=== PATIENT | female | born 1960 | race Caucasian/White ===

== ENCOUNTER 2020-10-25 18:20 | Inpatient (IN) | payer OTHER, MEDICAID, SELFPAY ==
[2020-10-25] VITALS (14 sets, daily range): BP systolic 75–200; BP diastolic 42–97; PULSE 67–125; RESP 14–20; TEMP 36.2–36.6; O2SAT 97–100; BMI 31.1
[2020-10-25] MEDS: propofoL 1,000 MG/100 ML VIAL 23.49 MG IV (20:05)
[2020-10-25] MEDS: DEXMEDETOMIDINE HCL 200 MCG in SODIUM CHLORIDE 0.9% 48 ML IV (20:20)
--- NOTE | 2020-10-25 20:22 | DI.RAD.S_ITS ---
PROCEDURE: XR CHEST 1V INDICATIONS: verify OG placement TECHNIQUE: One view of the chest was acquired. COMPARISON: [facility], , XR CHEST 1 VIEW, 10/25/2020, 15:06. FINDINGS: Surgical changes and devices: There is an endotracheal tube with the tip 3.2 cm above ginette. A nasogastric tube is noted in the stomach. Lungs and pleura: Left lower lobe infiltrate consistent with pneumonia. No pleural effusions or pneumothorax. Mediastinum: Mediastinal contours appear normal. Heart size is normal. Bones and chest wall: No suspicious bony lesions. Overlying soft tissues appear unremarkable. IMPRESSION: 1. Endotracheal tube and nasogastric tube are in expected position. 2. Left basilar infiltrate consistent with pneumonia. Dictated by: Rayshawn Griffin M.D. on 10/25/2020 at 21:09 Approved by: Rayshawn Griffin M.D. on 10/25/2020 at 21:10
--- NOTE | 2020-10-25 20:41 | PM.CN.EICU ---
History of Present Illness Consult details Chief complaint: Overdose Reason for consult: Acute metabolic encephalopathy :: This patient was seen via real time interactive two-way audiovisual telecommunication. 60 yr old F with medical H/o of schizophrenia and depression, admitted for suicidal attempt / overdose on Prozac 40 mg x 30 tab & Zyprexa 20 mg x 60 tab, pt was encephlopathic and intubated in the field, per staff this history was provided by her . Exam Vital Signs (past 8 hours): - 10/25/20 20:05 Temperature 97.2 F L Pulse Rate 125 H Respiratory Rate 14 Blood Pressure 200/97 H Pulse Oximetry 97 Fraction of Inspired Oxygen 40 Assessment & Plan Assessment & Plan narrative: 60 yr old Female with suicidal attempt , over dose on Zyprexa and Prozac Assessment: Acute metabolic encephalopathy Drug over dose on Zyprexa and Prozac Acute hyoxic and hypercapnic resp failure LLP per CXR report from OSH Hypokalemia and hypomgnesemia Drug screen positive for BZD Rec: STAT CBC, CMP, phos, ABG, CXR, repeat CMP & lytes in 6 hr Replace Mg and K for goal above 2 and 4, recheck levels QTC close watch, EKG showed Qtc 490, avoid any QTc prolonging med Continuos communication with poison control ( already contacted by ER per staff) Repeat Acetaminophen and Aspirin levels Vent Vc 20/450/40%/5 , pending ABG Sedation Propfol and fentanyl LR at 100 ml/ hr Zosyn, f/u CXR, sputum and blood Cx & precalcitonin, MRSA screen DVT chemical ppx with lovenox after checking CBC and GI ppx H2 ludmila Plan discussed with SYSTEMS ARCHITECT & RN Time Spent With Patient Critical Care time: I spent a total of [35] minutes of critical care time on this patient's care today; this time is exclusive of procedural time.
[2020-10-25] MEDS: PIPERACILLIN/TAZO 4.5 GM in SODIUM CHLORIDE 0.9% 100 ML 200 ML IV (21:04)
[2020-10-25] MEDS: LACTATED RINGERS 1,000 ML 100 ML IV ×2 (21:11→23:24)
[2020-10-25] MEDS: fentaNYL 1,000 MCG in DEXTROSE 5% IN WATER 230 ML 15.225 ML IV (21:13)
[2020-10-25 21:26] LABS: Fractionated Inspired Oxygen 40; HCO3 ABG 30 mmol/L (22-26); Oxygen Saturation ABG 98 % (95-100); PCO2 ABG 35.2 mmHg (35-45); PO2 ABG 85 mmHg (80-100); TCO2 ABG 31 mmol/L (21-31)
[2020-10-25 21:27] LABS: pH ABG 7.54 (7.35-7.45)
[2020-10-25 21:58] LABS: Add Manual Diff / Slide Review YES; Hematocrit 38.2 % (36-46); Hemoglobin 12.7 g/dL (12.0-16.0); Lactate (Lactic Acid) 2.2 mmol/L (0.7-2.1); Mean Corpuscular HGB Conc 33.4 % (30-36); Mean Corpuscular Hemoglobin 30.7 PG (26-34); Mean Corpuscular Volume 91.9 fL (80-100); Red Blood Cell Count 4.15 X10^6/uL (4.0-5.2); Red Cell Distribution Width 13.4 % (11.6-14.8); White Blood Cell Count 13.1 X10^3/uL (4.5-11.0)
[2020-10-25 22:02] LABS: Acetaminophen < 10 ug/mL (10-30); Alanine Aminotransferase 31 IU/L (<35); Albumin 3.8 g/dL (3.5-5.0); Albumin Globulin Ratio 1.2 (1.0-2.8); Alkaline Phosphatase 76 U/L (38-126); Aspartate Aminotransferase 33 IU/L (14-36); Bilirubin Total 0.9 mg/dL (0.2-1.3); Blood Urea Nitrogen 6 mg/dL (7-17); Calcium 9.2 mg/dL (8.4-10.2); Carbon Dioxide 31 mmol/L (22-32); Chloride 109 mmol/L (98-107); Estimated Glomerular Filt Rate > 60.0 mL/min (>60); Globulin 3.3 g/dL (1.7-4.1); Glucose 104 mg/dL (80-110); HEMOLYSIS < 15 (0-50); Potassium 3.6 mmol/L (3.4-5.1); Salicylate < 1.0 mg/dL (<20); Sodium 147 mmol/L (137-145); Total Protein 7.1 g/dL (6.3-8.2); Triglycerides 136 mg/dL (35-150)
[2020-10-25 22:18] LABS: Procalcitonin 0.09 ng/mL (<0.5)
[2020-10-25] MEDS: DEXMEDETOMIDINE HCL 200 MCG in SODIUM CHLORIDE 0.9% 48 ML 21 ML IV (22:20)
[2020-10-25 22:28] LABS: Neutrophils Absolute Manual 9694 /uL (3000-5900); Platelet Count 192 X10^3/uL (150-400); Total Cells Counted 100
[2020-10-25 22:29] LABS: Toxic Granulation Present; Toxic Vacuolation Present
--- NOTE | 2020-10-25 22:49 | PC.ADMIT ---
[address] [facility] Admission Note: The patient,Rashawn Lundberg,60 y/o, was given written information regarding hospital policies, unit procedures and contact persons. Patient's smoking status: . Vital Signs - 8 hr 10/25/20 20:05 10/25/20 21:00 10/25/20 22:00 Temperature 97.2 F L 97.2 F L 97.8 F Pulse Rate 125 H 91 H 80 Respiratory Rate 14 20 16 Blood Pressure 200/97 H 140/63 116/59 L Pulse Oximetry 97 98 100 Patient admitted from [facility] under hospitalist care at 2004 via ambulance. Patient is vented and has propofol running at 20 meq/hr. Mejía in place. Wrist restraints in place. Patient placed on telemetry. Hospitalist at bedside, teleICU doc consulted. Patient switched to hospital vent on: PEEP 5, TV 450, FiO2 40%, RR 16. Patient's initial BP readings systolic >200. Hr sinus tachy 100-120. Dr. May ordered propofol bolus of 50mcg and to titrate continuous rate to 45 mcg/hr. LR started at 100ml/hr. Fentanyl drip ordred, started at 0.7 mcg/kg/hr and later increased 1 mcg/kg/hr. ABG and labs drawn. Blood cultures and sputum cultures done. Chest xray done to confirm ET placement after transport and OG tube placement. Patient's BP dropped to MAP of 40, this nurse placed patient in trendelenberg, increased LR to bolus, and stopped propoful. TeleICU doc called but did not answer. Hospitalist came to bedside. Patient's BP steady improved to WNL. Levophed ordered and prepped but was ultimately not started due to BP improvement. Patient restarted on propofol at 15mcg/hr. Hospitalist changed order from propofol to Precedex, started at 0.2mcg/kg/hr. Propofol discontinued. At end of shift, HR is 90's NSR, BP 128/60, vent settings remain unchanged.
[2020-10-25 23:35] LABS: Reflexed Lactate in 2 Hours Y
[2020-10-25 23:51] LABS: Lactate 2HR (Lactic Acid Rflx) 2.2 mmol/L (0.7-2.1)
[2020-10-25 23:51] LABS: Magnesium 2.3 mg/dL (1.6-2.3)
[2020-10-26] VITALS (75 sets, daily range): BP systolic 63–151; BP diastolic 34–76; PULSE 61–110; RESP 10–25; TEMP 36.2–37.5; O2SAT 95–100
--- NOTE | 2020-10-26 00:17 | P.HP_ITS ---
History of Present Illness History of Present Illness Date Patient Seen: 10/25/20 Time Patient Seen: 21:00 Chief complaint: Overdose Narrative: Patient is a 60-year-old female Rashawn Lundberg with a history of chronic undifferentiated schizophrenia, acute psychosis, noncompliance with medications and non insulin-dependent type 2 diabetes who presented to the ED department at [facility]. Patient seen for drug overdose/suicide attempt by Dr. Flower at [facility] stated the patient's spouse provided history. The stated he was with his this morning and she told him to go walk the dogs when he returned he found her obtunded and snoring. The EMS found at the patient's bedside pill bottles Prozac 40 mg #30 and Zyprexa 20 mg #60, both had been emptied, both prescriptions had been filled within the last 48 hours. The medics found the patient was responding to painful stimuli with moaning but was not protecting her airway and was intubated in route. Patient was given Etomidate, succinylcholine, fentanyl and Versed EN route to [facility] ED at approximately 1430. Dr. Flower consulted poison Control at 1446 p.m. who recommended supportive care, then consulted Dr. Cortes [facility] hospitalist who accepted, for acute care transfer to facility. Patient's vitals/labs at [facility] were originally BP 157/88, HR 120, temp 36?, RR 20, O2 saturation 100% on intubation. Patient had elevated white count 10.3, neutrophils 8.2, hypokalemia potassium 3.1, BUN 7, glucose 189, calcium 7.6, albumin 3.2, magnesium 1.5, acetaminophen< 2.0, TSH 0.128, rapid urine drug screen was positive for benzodiazepines. ABGs demonstrated pH 7.37, pCO2 47, PO2 169, HC03 27.8 patient's urine was negative for infection, respiratory panel was negative, salicylate WNL, troponin WNL <0.017, BNP WNL 21, lactic acid WNL 1.9. EKG demonstrated sinus tachycardia at a rate of 128 probable LAE. Patient's chest x-ray confirmed endotracheal tube placement 2.8 cm above ginette, and left lobe infiltrate suspicious for pneumonia. Patient receive 2 g magnesiu m rider, and 10 mEq potassium rhyder replacement. Patient arrived at [facility] at approximately 9:00 p.m. sedated and intubated. Patient was a ICU bed-side, admit greater than 60 minutes. Int ensivist notified in room upon admit and participated in intial admit. Initial vitals temp 97.2?, BP 200/97, HR 125, RR 14, O2 saturation 97%, patient was on a propofol drip 15 mcg/kg/min, vent settings: PRVC 40%, TV 450, rate 20, peep 5. Patient was agitated, began bucking the vent, the practicing urologist requested that the propofol be increased to 40-50mg. At approximately 9:30 p.m. the patient became severely hypotensive, with maps as low as 40, likely due to the increased propofol dosage. The ICU nurses pushed the button for the tele-practicing urologist, and did not get any response. I ordered titration down the propofol, Levophed, and a bolus of fluid. Changed propofol to Precedex, levophed was held and patient stabilized. Patient's WBC 13.1, with a left shift neutrophils 9694, chemistries sodium 147, chloride 109, BUN 6, creatinine 0.43, lactate 2.2, triglycerides, salicylate, acetaminophen, and procalcitonin all WNL. Patient's ABGs pH 7.54, pCO2 35.2, HC03 30, base excess 7.0, FiO2 40. Patient continues on the ventilator : PRVC 40%, TV 450, rate 16, peep of 5, titrating Precedex drip 0.2 mcg/kg/HR and fentanyl drip 1 mg/kg/HR. Patient is now resting comfortably temp 97.3, BP 126/69, HR 93, R 16, O2 saturation 100%, FiO2 40. NG tube in place with intermittent suction secretions are clear at this time, Mejía in place, draining, with large amount yellow urine output. Patient's chest x-ray demonstrated left basilar infiltrate consistent with pneumonia. Patient on LR at 100 cc and Zosyn initiated. Patient admitted for drug overdose/suicide attempt, in the setting of acute psychosis and chronic undifferentiated schizophrenia. Patient History Medical History (Updated 10/26/20 @ 01:42 by SARAN Ledesma-) Acute psychosis 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 History of suicide attempt Non-insulin dependent type 2 diabetes mellitus Noncompliance with medications Obesity (BMI 30.0-34.9) Suicide attempt by multiple drug overdose Surgical History (Updated 10/26/20 @ 01:42 by SARAN Ledesma-) History of abdominal surgery History of hysterectomy Family & Social History Family History (Updated 10/26/20 @ 01:45 [facility] Other Unknown family medical history Social History: Patient is and lives with her . Tobacco & Substance use: Never smoked, never drinks, never uses recreational substances Meds Home Medications and Allergies Home Medications Medication Instructions Recorded Confirmed Type fluoxetine 20 mg capsule 40 mg PO DAILY 10/25/20 10/25/20 History metformin 850 mg tablet 850 mg PO DAILY 10/25/20 10/25/20 History olanzapine 20 mg tablet 20 mg PO BEDTIME 10/25/20 10/25/20 History Allergies Allergy/AdvReac Type Severity Reaction Status Date / Time venom-honey bee Allergy Unknown Verified 10/25/20 20:53 Review of Systems Review of Systems Narrative: Unable to obtain HPI or ROS due to intubation. Exam Vital Signs (past 8 hours): - 10/25/20 20:05 10/25/20 21:00 10/25/20 22:00 Temperature 97.2 F L 97.2 F L 97.8 F Pulse Rate 125 H 91 H 80 Respiratory Rate 14 20 16 Blood Pressure 200/97 H 140/63 116/59 L Pulse Oximetry 97 98 100 10/25/20 22:58 Temperature 97.9 F Pulse Rate 93 H Respiratory Rate 16 Blood Pressure 129/69 Pulse Oximetry 100 Fraction of Inspired Oxygen 40 Oxygen Delivery Method Mechanical Ventilation Narrative Exam Narrative: General: Patient is a obese sedated well-developed, female, intubated, in no distress at this time. HEENT: Normocephalic, atraumatic, mucous membranes are dry. Neck is supple and symmetric, trachea is midline, no adenopathy, no thyroid enlargement, no masses palpated. Negative for JVD, NG tube in place patent and draining clear fluids. Chest: Normal AP diameter and contour without kyphoscoliosis, no nasal flaring, retractions, or tachypneic labored Lungs: Auscultation of all lung hendrickson are clear without adventitious sounds, wheezes, rhonchi, or rales. Cardio: regular rate and rhythm without murmur, rubs, or gallops, no carotid bruit, no cardiac pulsations present. Abdomen: Soft, negative for organomegaly, or masses. Bowel sounds are hypoactive present in all 4 quadrants. Mejía catheter in place, patent, and draining copious amounts of yellow urine. Musculoskeletal: Muscle strength and tone appear equal within normal limits, no deformity, crepitus, effusions, cyanosis, clubbing or edema present. Full range of motion intact radial and pedal pulses are normal. Skin: Warm dry and intact without rashes, ulcerations or petechiae. Neuro: patient is sedated and intubated- but dose rouse and move bucking the vent when sedation medication is lowered. Psych: Patient has a well-kept appearance. Objective Labs Result Diagrams: 10/25/20 21:00 10/25/20 21:00 Labs: Laboratory Results - last 24 hr 10/25/20 10/25/20 10/25/20 20:55 21:00 21:00 WBC 13.1 H RBC 4.15 Hgb 12.7 Hct 38.2 MCV 91.9 MCH 30.7 MCHC 33.4 RDW 13.4 Plt Count 192 Neut % (Auto) Not Reportable Lymph % (Auto) Not Reportable [place] % (Auto) Not Reportable Eos % (Auto) Not Reportable Baso % (Auto) Not Reportable Lymph # (Auto) Not Reportable [place] # (Auto) Not Reportable Baso # (Auto) Not Reportable Total Counted 100 Seg Neutrophils % 74.0 H Lymphocytes % (Manual) 20.0 L Monocytes % (Manual) 6.0 Neutrophils # (Manual) 9694 H Toxic Granulation Present H Toxic Vacuolation Present H RBC Morphology See below ABG pH 7.54 H ABG pCO2 35.2 ABG pO2 85 ABG HCO3 30 H ABG Total CO2 31 ABG O2 Saturation 98 ABG Base Excess 7.0 H FiO2 40 Sodium 147 H Potassium 3.6 Chloride 109 H Carbon Dioxide 31 BUN 6 L Creatinine 0.43 L Estimated GFR > 60.0 BUN/Creatinine Ratio 14.0 Glucose 104 Lactate Calcium 9.2 Magnesium Total Bilirubin 0.9 AST 33 ALT 31 Alkaline Phosphatase 76 Total Protein 7.1 Albumin 3.8 Globulin 3.3 Albumin/Globulin Ratio 1.2 Triglycerides 136 Procalcitonin 0.09 Salicylates < 1.0 Acetaminophen < 10 L 10/25/20 10/25/20 10/25/20 21:00 21:00 23:25 WBC RBC Hgb Hct MCV MCH MCHC RDW Plt Count Neut % (Auto) Lymph % (Auto) [place] % (Auto) Eos % (Auto) Baso % (Auto) Lymph # (Auto) [place] # (Auto) Baso # (Auto) Total Counted Seg Neutrophils % Lymphocytes % (Manual) Monocytes % (Manual) Neutrophils # (Manual) Toxic Granulation Toxic Vacuolation RBC Morphology ABG pH ABG pCO2 ABG pO2 ABG HCO3 ABG Total CO2 ABG O2 Saturation ABG Base Excess FiO2 Sodium Potassium Chloride Carbon Dioxide BUN Creatinine Estimated GFR BUN/Creatinine Ratio Glucose Lactate 2.2 H 2.2 H Calcium Magnesium 2.3 Total Bilirubin AST ALT Alkaline Phosphatase Total Protein Albumin Globulin Albumin/Globulin Ratio Triglycerides Procalcitonin Salicylates Acetaminophen Assessment & Plan Assessment & Plan narrative: Patient is a 60-year-old female Rashawn Lundberg with a history of chronic undifferentiated schizophrenia, acute psychosis, noncompliance with medications and non insulin-dependent type 2 diabetes who presented to the ED department at [facility] for drug overdose/suicide attempt, who had been intubated in the field. Patient was then transferred to [facility] ICU admitted for drug overdose/suicide attempt in the setting of chronic undifferentiated schizophrenia and acute psychosis. 1. Acute respiratory failure secondary to suicide attempt by drug overdose, in the setting of chronic undifferentiated schizophrenia and acute psychosis, acute on chronic, with left lower lobe aspiration pneumonia, acute, present on admission,-patient is stable -WBC 13.1, neutrophils 9694, chemistries sodium 147, chloride 109, BUN 6, creatinine 0.43, lactate 2.2. -I personally reviewed ABGs pH 7.54, pCO2 35.2, HC03 30, base excess 7.0, FiO2 40. EKG #1 demonstrated sinus tachycardia with a rate of 105, KS and QRS QT intervals within normal limits without ST or T-wave changes. Repeat EKG NSR, ventricular rate of 90, KS interval 148, QRS 72, QT/QTC 392/479. Without ST or T-wave changes. -I personally reviewed chest x-ray demonstrated left basilar infiltrate consistent with pneumonia and correct tube placement -ventilator: PRVC 40%, TV 450, rate 16, peep of 5. -attempts will be made to maintain FiO2 to nontoxic levels 60% or below, with a goal SpO2 maintaining between 90-96%. -Respiratory consult/ABGs as needed -propofol changed to Precedex drip 0.2 mcg/kg/HR and fentanyl drip 1 mg/kg/HR. per protocol-goal: RASS score of 3- Levophed ordered for possible sustained hypotension -PICC Afterhours -ordered - NG tube in place with intermittent suction. Mejía in place. -LR @100cc/Hr -Zosyn 4.5Grams given followed by 3.375 gm [id number] after blood & sputum cultures collected. for likely left lobe aspiration pneumonia. -BS [id number] while NPO, oral hygiene Q shift, turn and reposition patient q.2 hours, Mejía catheter protocol, strict monitoring of I&O Q shift. -Manage NGtube Q shift/intermittent suction. Weight daily, Diet: NPO -Daily sedation holidays: A wake up and breathe protocol that pairs daily spontaneous awakening trials with daily spontaneous breathing trials result in better outcomes for mechanically ventilated patient is in intensive care. -Labs: CBC and CMP daily, monitor triglycerides, EKG: Monitor QT/QTC interval elevation in relation to Precedex -Consider:Chest x-rays daily while on the ventilator -infection control consulted by [facility], and [place] ICU, tele ICU consult. -ordered: Dr. Carcamo psych consult-once patient is awake and extubated. Strongly recommend outpatient follow-up plan-care management evaluation -holding patient's Prozac and Zyprexa -I personally reviewed all of the patient's medical records and documentation from [facility], also patient's chest x-ray, EKG, and ABGs upon admit to the ICU. 2. Non insulin-dependent type 2 diabetes, secondary to obesity as evidence by BMI of 31.2, acute on chronic, present on admission -admitting glucose 104, A1C ordered -diabetes protocol, BS check q.6 hours while NPO, once eating changed to a.c. HS, low-dose sliding scale for coverage -holding patient's metformin -consideration will be given for dietary counseling. Code status: Full code-unable to verify, no family present at the bedside. Patient's PCP Mathew Meyer [phone] Surrogate decision maker: Spouse Davie Lundberg [phone]/son Anurga Lundberg [phone] COVID PCR: Negative COVID vaccination: Unknown DVT/VTE prophylaxis: Heparin 5000 units b.i.d. and SCDs Disposition: ICU greater than 2 midnights I have utilized all available immediate resources to obtain, update, or review the patient's current medications. Exception-the patient is not eligible for medication reconciliation; the patient is in an emergent medical situation were delaying treatment would jeopardize the patient's health. I have documented and/or surrogate decision maker is listed in the patient's medical record. I have been unable to verify patients Code status due to intubat ion, there is no documentation in the medical record from [facility], nor is there any family at the bedside. Scores GCS Gloria coma scale eye opening: None Gloria coma scale verbal response: None Danese coma scale motor response: Extension Danese coma scale total score: 4
[2020-10-26] MEDS: PIPERACILLIN/TAZO 3.375 GM in SODIUM CHLORIDE 0.9% 100 ML 25 ML IV ×3 (01:18→17:55)
[2020-10-26] MEDS: LACTATED RINGERS 1,000 ML 1000 ML IV (02:45)
[2020-10-26] MEDS: NOREPINEPHRINE 4 MG in DEXTROSE 5% IN WATER 250 ML 30.48 ML IV (02:49)
[2020-10-26] MEDS: LACTATED RINGERS 1,000 ML 100 ML IV ×3 (03:14→22:48)
--- NOTE | 2020-10-26 03:17 | PC.NURSE ---
Pt. became hypotensive with SBP in the 60's, MAP in the 40's, button for dental mold maker was push and JENNIFER Cisneros was called. Athletic Coordinator no response. Meantime, had the pt. reposition with HOB down, feet up then slightly tredelenburg, Fentany was stopped, precedex drop down to 0.1 mcg/kg/min and LR bolus of 500 ml. Then finally got a hold of the dental mold maker, and his advise is to stopped the Fentanyl, keep the Norepi on and titrate precedex to sedation. Then got a call from [facility] and states dental mold maker had changed his mind to start Versed gtt as a bridge while titrating Precedex off and Norepi down to off.
[2020-10-26 03:21] LABS: Add Manual Diff / Slide Review NO; Basophils Absolute Auto 100 /uL (0-100); Basophils Percent Auto 0.7 % (0-2); Eosinophils Absolute Auto 200 /uL (0-450); Eosinophils Percent Auto 1.6 % (2-4); Hematocrit 35.6 % (36-46); Hemoglobin 11.6 g/dL (12.0-16.0); Lymphocytes Absolute Auto 3600 /uL (1100-4500); Lymphocytes Percent Auto 31.1 % (25-40); Mean Corpuscular HGB Conc 32.6 % (30-36); Mean Corpuscular Hemoglobin 30.6 PG (26-34); Mean Corpuscular Volume 93.9 fL (80-100); Monocytes Absolute Auto 1000 /uL (0-900); Monocytes Percent Auto 8.5 % (3-14); Neutrophils Absolute Auto 6700 /uL (1500-7000); Neutrophils Percent Auto 58.1 % (50-75); Platelet Count 186 X10^3/uL (150-400); Red Blood Cell Count 3.79 X10^6/uL (4.0-5.2); Red Cell Distribution Width 13.5 % (11.6-14.8); White Blood Cell Count 11.5 X10^3/uL (4.5-11.0)
[2020-10-26 03:27] LABS: Ammonia (NH3) < 9 umol/L (9-30)
[2020-10-26 03:29] LABS: Acetaminophen < 10 ug/mL (10-30); Alanine Aminotransferase 26 IU/L (<35); Albumin 3.2 g/dL (3.5-5.0); Albumin Globulin Ratio 1.1 (1.0-2.8); Alkaline Phosphatase 63 U/L (38-126); Aspartate Aminotransferase 27 IU/L (14-36); BUN Creatinine Ratio 15.2 (6-22); Bilirubin Total 0.9 mg/dL (0.2-1.3); Blood Urea Nitrogen 7 mg/dL (7-17); Calcium 8.5 mg/dL (8.4-10.2); Carbon Dioxide 27 mmol/L (22-32); Chloride 111 mmol/L (98-107); Estimated Glomerular Filt Rate > 60.0 mL/min (>60); Globulin 2.9 g/dL (1.7-4.1); Glucose 129 mg/dL (80-110); HEMOLYSIS < 15 (0-50); Potassium 3.6 mmol/L (3.4-5.1); Sodium 143 mmol/L (137-145); Total Protein 6.1 g/dL (6.3-8.2); Triglycerides 140 mg/dL (35-150)
[2020-10-26 03:32] LABS: Hemoglobin A1C% w Est Avg Glu 5.5 % (4.0-6.0)
[2020-10-26] MEDS: DEXMEDETOMIDINE HCL 200 MCG in SODIUM CHLORIDE 0.9% 48 ML 4350 ML IV (04:03)
[2020-10-26] MEDS: ALBUMIN HUMAN 50 GM/200 ML VIAL IV (04:54)
[2020-10-26 05:16] LABS: Fractionated Inspired Oxygen 40; HCO3 ABG 29 mmol/L (22-26); Oxygen Saturation ABG 99 % (95-100); PCO2 ABG 45.4 mmHg (35-45); PO2 ABG 122 mmHg (80-100); TCO2 ABG 31 mmol/L (21-31)
[2020-10-26 05:17] LABS: pH ABG 7.42 (7.35-7.45)
--- NOTE | 2020-10-26 06:46 | DI.RAD.S_ITS ---
PROCEDURE: XR CHEST 1V INDICATIONS: Picc line verification TECHNIQUE: One view of the chest was acquired. COMPARISON: [facility], , XR CHEST 1V, 10/25/2020, 20:28. FINDINGS: Surgical changes and devices: PICC line projects to the distal SVC via a left-sided approach. ET and NG tubes are stable. Lungs and pleura: Patchy opacity in the left lung base has decreased in size compared October 25, 2020 without complete resolution. No pleural effusions or pneumothorax. Mediastinum: Mediastinal contours appear normal. Heart size is normal. Bones and chest wall: No suspicious bony lesions. Overlying soft tissues appear unremarkable. IMPRESSION: Tip of PICC line projects over the distal SVC. Dictated by: Kayla Casey MD, PhD on 10/26/2020 at 6:56 Approved by: Kayla Casey MD, PhD on 10/26/2020 at 6:56
[2020-10-26] MEDS: FAMOTIDINE 20 MG/2 ML VIAL IV ×2 (09:06→21:52)
[2020-10-26] MEDS: HEPARIN 5,000 UNIT/ML VIAL 5000 UNIT SUBCUT ×2 (09:06→21:52)
[2020-10-26] MEDS: SODIUM CHLORIDE 0.9% FLUSH 10 ML IV ×2 (09:10→21:54)
--- NOTE | 2020-10-26 11:32 | PC.NURSE ---
Addendum entered by Anselmo Armendariz R.N. 10/26/20 15:01: Patient placed back on ventilator by R.T. for increasing drowsiness and fatigue, and decreasing RR to 10, although sp02 maintains WNL throughout. PICC line to ARNOLDO remains in place and intact, with IV fluids infusing as ordered. Mejía remains in place and intact, draining clear yellow urine. OG tube maintains in place to lower intermittent wall suction with minimal gastric output. Bilateral wrist restraints maintained for attempts to pull/remove tubing, circulation and ROM remain intact with Q2 hour checks in place. Bed alarm on for safety. Evening shift RN to assume care. Addendum entered by Anselmo Armendariz R.N. 10/26/20 12:43: Patient is arousing to voice and opening eyes, able to maintain eye contact and follow commands at this time. Denies pain by shaking head. R.T. initiated breathing trial. Continue to monitor. Original Note: Daily sedation trial in effect at this time, precedex paused at 1025am. Patient occasionally arousing, and opening eyes to sound at this time. Will continue to monitor.
--- NOTE | 2020-10-26 14:06 | PM.PN.1 ---
Subjective Subjective Interval history: 60 y/o female admitted following an intentional overdose. Patient remains intubated but alert and somewhat responsive Exam Vital Signs (past 8 hours): - 10/26/20 06:15 10/26/20 06:30 10/26/20 06:55 Temperature Pulse Rate 80 88 88 Respiratory Rate 16 18 18 Blood Pressure 113/54 L 105/50 L Pulse Oximetry 99 99 99 10/26/20 07:00 10/26/20 07:55 10/26/20 08:00 Temperature 98.1 F 98.3 F Pulse Rate 86 83 85 Respiratory Rate 16 16 16 Blood Pressure 121/54 L 116/55 L Pulse Oximetry 99 99 99 10/26/20 08:55 10/26/20 09:00 10/26/20 09:55 Temperature Pulse Rate 84 84 88 Respiratory Rate 16 16 16 Blood Pressure 122/58 L Pulse Oximetry 98 98 98 10/26/20 10:00 10/26/20 10:55 10/26/20 11:00 Temperature Pulse Rate 83 86 84 Respiratory Rate 16 17 16 Blood Pressure 121/59 L 126/59 L Pulse Oximetry 98 98 98 10/26/20 11:55 10/26/20 12:00 10/26/20 12:55 Temperature 98.7 F Pulse Rate 90 91 H 97 H Respiratory Rate 16 16 12 Blood Pressure 136/64 Pulse Oximetry 97 96 97 10/26/20 13:00 Temperature Pulse Rate 98 H Respiratory Rate 11 L Blood Pressure 149/70 H Pulse Oximetry 97 Fraction of Inspired Oxygen 0.25 Oxygen Delivery Method Mechanical Ventilation Oxygen Flow Rate 30 Narrative Exam Narrative: Ill appearing female intubated Resp Other: Decreased breath sounds bilaterally Cardio Other: RRR nl Sl S2 GI Other: Abdomen: soft/ non tender Other: Mejía in place Extrem Other: no edema Objective Labs Result Diagrams: 10/26/20 03:05 10/26/20 03:05 Labs: Laboratory Results - last 24 hr 10/25/20 10/25/20 10/25/20 20:55 21:00 21:00 WBC 13.1 H RBC 4.15 Hgb 12.7 Hct 38.2 MCV 91.9 MCH 30.7 MCHC 33.4 RDW 13.4 Plt Count 192 Neut % (Auto) Not Reportable Lymph % (Auto) Not Reportable [place] % (Auto) Not Reportable Eos % (Auto) Not Reportable Baso % (Auto) Not Reportable Neut # (Auto) Lymph # (Auto) Not Reportable [place] # (Auto) Not Reportable Eos # (Auto) Baso # (Auto) Not Reportable Total Counted 100 Seg Neutrophils % 74.0 H Lymphocytes % (Manual) 20.0 L Monocytes % (Manual) 6.0 Neutrophils # (Manual) 9694 H Toxic Granulation Present H Toxic Vacuolation Present H RBC Morphology See below ABG pH 7.54 H ABG pCO2 35.2 ABG pO2 85 ABG HCO3 30 H ABG Total CO2 31 ABG O2 Saturation 98 ABG Base Excess 7.0 H FiO2 40 Sodium 147 H Potassium 3.6 Chloride 109 H Carbon Dioxide 31 BUN 6 L Creatinine 0.43 L Estimated GFR > 60.0 BUN/Creatinine Ratio 14.0 Glucose 104 Hemoglobin A1c Lactate Calcium 9.2 Magnesium Total Bilirubin 0.9 AST 33 ALT 31 Alkaline Phosphatase 76 Ammonia Total Protein 7.1 Albumin 3.8 Globulin 3.3 Albumin/Globulin Ratio 1.2 Triglycerides 136 Procalcitonin 0.09 Nasal Screen MRSA (PCR) Salicylates < 1.0 Acetaminophen < 10 L 10/25/20 10/25/20 10/25/20 21:00 21:00 23:25 WBC RBC Hgb Hct MCV MCH MCHC RDW Plt Count Neut % (Auto) Lymph % (Auto) [place] % (Auto) Eos % (Auto) Baso % (Auto) Neut # (Auto) Lymph # (Auto) [place] # (Auto) Eos # (Auto) Baso # (Auto) Total Counted Seg Neutrophils % Lymphocytes % (Manual) Monocytes % (Manual) Neutrophils # (Manual) Toxic Granulation Toxic Vacuolation RBC Morphology ABG pH ABG pCO2 ABG pO2 ABG HCO3 ABG Total CO2 ABG O2 Saturation ABG Base Excess FiO2 Sodium Potassium Chloride Carbon Dioxide BUN Creatinine Estimated GFR BUN/Creatinine Ratio Glucose Hemoglobin A1c Lactate 2.2 H 2.2 H Calcium Magnesium 2.3 Total Bilirubin AST ALT Alkaline Phosphatase Ammonia Total Protein Albumin Globulin Albumin/Globulin Ratio Triglycerides Procalcitonin Nasal Screen MRSA (PCR) Salicylates Acetaminophen 10/26/20 10/26/20 10/26/20 02:30 03:05 03:05 WBC 11.5 H RBC 3.79 L Hgb 11.6 L Hct 35.6 L MCV 93.9 MCH 30.6 MCHC 32.6 RDW 13.5 Plt Count 186 Neut % (Auto) 58.1 Lymph % (Auto) 31.1 [place] % (Auto) 8.5 Eos % (Auto) 1.6 L Baso % (Auto) 0.7 Neut # (Auto) 6700 Lymph # (Auto) 3600 [place] # (Auto) 1000 H Eos # (Auto) 200 Baso # (Auto) 100 Total Counted Seg Neutrophils % Lymphocytes % (Manual) Monocytes % (Manual) Neutrophils # (Manual) Toxic Granulation Toxic Vacuolation RBC Morphology ABG pH ABG pCO2 ABG pO2 ABG HCO3 ABG Total CO2 ABG O2 Saturation ABG Base Excess FiO2 Sodium 143 Potassium 3.6 Chloride 111 H Carbon Dioxide 27 BUN 7 Creatinine 0.46 L Estimated GFR > 60.0 BUN/Creatinine Ratio 15.2 Glucose 129 H Hemoglobin A1c Lactate Calcium 8.5 Magnesium 2.0 Total Bilirubin 0.9 AST 27 ALT 26 Alkaline Phosphatase 63 Ammonia Total Protein 6.1 L Albumin 3.2 L Globulin 2.9 Albumin/Globulin Ratio 1.1 Triglycerides 140 Procalcitonin Nasal Screen MRSA (PCR) Negative for mrsa Salicylates Acetaminophen < 10 L 10/26/20 10/26/20 10/26/20 03:05 03:05 05:02 WBC RBC Hgb Hct MCV MCH MCHC RDW Plt Count Neut % (Auto) Lymph % (Auto) [place] % (Auto) Eos % (Auto) Baso % (Auto) Neut # (Auto) Lymph # (Auto) [place] # (Auto) Eos # (Auto) Baso # (Auto) Total Counted Seg Neutrophils % Lymphocytes % (Manual) Monocytes % (Manual) Neutrophils # (Manual) Toxic Granulation Toxic Vacuolation RBC Morphology ABG pH 7.42 ABG pCO2 45.4 H ABG pO2 122 H ABG HCO3 29 H ABG Total CO2 31 ABG O2 Saturation 99 ABG Base Excess 5.0 H FiO2 40 Sodium Potassium Chloride Carbon Dioxide BUN Creatinine Estimated GFR BUN/Creatinine Ratio Glucose Hemoglobin A1c 5.5 Lactate Calcium Magnesium Total Bilirubin AST ALT Alkaline Phosphatase Ammonia < 9 L Total Protein Albumin Globulin Albumin/Globulin Ratio Triglycerides Procalcitonin Nasal Screen MRSA (PCR) Salicylates Acetaminophen [facility] Medical History (Updated 10/26/20 @ 01:42 by SMILEY Ledesma) Acute psychosis 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 History of suicide attempt Non-insulin dependent type 2 diabetes mellitus Noncompliance with medications Obesity (BMI 30.0-34.9) Suicide attempt by multiple drug overdose Surgical History (Updated 10/26/20 @ 01:42 by SMILEY Ledesma) History of abdominal surgery History of hysterectomy Family History (Updated 10/26/20 @ 01:45 by SMILEY Ledesma) Other Unknown family medical history Assessment & Plan Assessment & Plan narrative: Acute respiratory failure secondary to suicide attempt by drug overdose, in the setting of chronic undifferentiated schizophrenia and acute psychosis, acute on chronic, with left lower lobe aspiration pneumonia, acute, present on admission,-patient is stable -WBC 13.1, neutrophils 9694, chemistries sodium 147, chloride 109, BUN 6, creatinine 0.43, lactate 2.2. -ventilator: PRVC 40%, TV 450, rate 16, peep of 5. -attempts will be made to maintain FiO2 to nontoxic levels 60% or below, with a goal SpO2 maintaining between 90-96%. -Respiratory consult/ABGs as needed -propofol changed to Precedex drip 0.2 mcg/kg/HR and fentanyl drip 1 mg/kg/HR. per protocol-goal: RASS score of 3- Levophed ordered for possible sustained hypotension -PICC Afterhours -ordered - NG tube in place with intermittent suction. Mejía in place. -LR @100cc/Hr -Zosyn 4.5Grams given followed by 3.375 gm [id number] after blood & sputum cultures collected. for likely left lobe aspiration pneumonia. -BS [id number] while NPO, oral hygiene Q shift, turn and reposition patient q.2 hours, Mejía catheter protocol, strict monitoring of I&O Q shift. -Manage NGtube Q shift/intermittent suction. Weight daily, Diet: NPO -Daily sedation holidays: A wake up and breathe protocol that pairs daily spontaneous awakening trials with daily spontaneous breathing trials result in better outcomes for mechanically ventilated patient is in intensive care. -Labs: CBC and CMP daily, monitor triglycerides, EKG: Monitor QT/QTC interval elevation in relation to Precedex -Consider:Chest x-rays daily while on the ventilator -infection control consulted by [facility], [facility] ICU, tele ICU consult. -ordered: Dr. Carcamo psych consult-once patient is awake and extubated. Strongly recommend outpatient follow-up plan-care management evaluation -holding patient's Prozac and Zyprexa -sponataneous breathing trial today, if possible will extubate -Continue IV antibiotics 2. Non insulin-dependent type 2 diabetes, secondary to obesity as evidence by BMI of 31.2, acute on chronic, present on admission -admitting glucose 104, A1C ordered -diabetes protocol, BS check q.6 hours while NPO, once eating changed to a.c. HS, low-dose sliding scale for coverage -holding patient's metformin -consideration will be given for dietary counseling.
[2020-10-26] MEDS: DEXMEDETOMIDINE HCL 200 MCG in SODIUM CHLORIDE 0.9% 48 ML IV ×2 (20:37→21:35)
[2020-10-27] VITALS (27 sets, daily range): BP systolic 93–151; BP diastolic 49–67; PULSE 57–131; RESP 12–23; TEMP 36.4–38; O2SAT 91–98
[2020-10-27] MEDS: PIPERACILLIN/TAZO 3.375 GM in SODIUM CHLORIDE 0.9% 100 ML 25 ML IV ×2 (02:26→09:57)
[2020-10-27 04:46] LABS: Add Manual Diff / Slide Review NO; Basophils Absolute Auto 100 /uL (0-100); Basophils Percent Auto 1.2 % (0-2); Eosinophils Absolute Auto 300 /uL (0-450); Eosinophils Percent Auto 3.1 % (2-4); Hematocrit 32.3 % (36-46); Hemoglobin 10.8 g/dL (12.0-16.0); Lymphocytes Absolute Auto 2800 /uL (1100-4500); Mean Corpuscular HGB Conc 33.6 % (30-36); Mean Corpuscular Hemoglobin 30.9 PG (26-34); Mean Corpuscular Volume 92.1 fL (80-100); Monocytes Absolute Auto 600 /uL (0-900); Monocytes Percent Auto 7.1 % (3-14); Neutrophils Absolute Auto 4700 /uL (1500-7000); Neutrophils Percent Auto 55.6 % (50-75); Platelet Count 167 X10^3/uL (150-400); Red Cell Distribution Width 13.2 % (11.6-14.8); White Blood Cell Count 8.4 X10^3/uL (4.5-11.0)
[2020-10-27 04:54] LABS: Alanine Aminotransferase 21 IU/L (<35); Albumin 3.7 g/dL (3.5-5.0); Albumin Globulin Ratio 1.4 (1.0-2.8); Alkaline Phosphatase 53 U/L (38-126); Aspartate Aminotransferase 23 IU/L (14-36); BUN Creatinine Ratio 14.6 (6-22); Bilirubin Total 1.9 mg/dL (0.2-1.3); Blood Urea Nitrogen 7 mg/dL (7-17); Calcium 8.9 mg/dL (8.4-10.2); Carbon Dioxide 27 mmol/L (22-32); Chloride 106 mmol/L (98-107); Estimated Glomerular Filt Rate > 60.0 mL/min (>60); Globulin 2.6 g/dL (1.7-4.1); Glucose 104 mg/dL (80-110); HEMOLYSIS < 15 (0-50); Magnesium 1.7 mg/dL (1.6-2.3); Sodium 138 mmol/L (137-145); Total Protein 6.3 g/dL (6.3-8.2); Triglycerides 112 mg/dL (35-150)
[2020-10-27] MEDS: HEPARIN 5,000 UNIT/ML VIAL 5000 UNIT SUBCUT ×2 (08:08→21:42)
[2020-10-27] MEDS: FAMOTIDINE 20 MG/2 ML VIAL IV (08:08)
[2020-10-27] MEDS: LACTATED RINGERS 1,000 ML 100 ML IV (08:08)
--- NOTE | 2020-10-27 08:54 | PM.PN.1 ---
Subjective Subjective Interval history: Patient was admitted for an intentional Overdose of Prozac and Zyprexa. She is more alert and awake today. Precedex is tapering off. Patient has done well on spontaneous breathing trial. Plans underway to extubate Exam Vital Signs (past 8 hours): - 10/27/20 01:00 10/27/20 02:00 10/27/20 03:00 Temperature 99.4 F 98.5 F Pulse Rate 76 71 62 Respiratory Rate 16 16 16 Blood Pressure 105/58 L 109/59 L 93/52 L Pulse Oximetry 96 97 96 10/27/20 04:00 10/27/20 05:00 10/27/20 06:00 Temperature Pulse Rate 58 L 57 L 68 Respiratory Rate 16 16 16 Blood Pressure 108/55 L 103/52 L 151/65 H Pulse Oximetry 97 97 98 10/27/20 07:00 10/27/20 08:00 Temperature 97.5 F L Pulse Rate 57 L 62 Respiratory Rate 16 16 Blood Pressure 95/49 L 104/57 L Pulse Oximetry 97 98 Fraction of Inspired Oxygen 25 Oxygen Delivery Method Mechanical Ventilation Oxygen Flow Rate 0 Narrative Exam Narrative: intubated female, arousable and somewhat responsive Resp Other: Lungs: clear to auscultation Cardio Other: RRR nl Sl S2 GI Other: Abd: soft/ non tender/ non distended Extrem Other: no edema Objective Labs Result Diagrams: 10/27/20 04:30 10/27/20 04:30 Labs: Laboratory Results - last 24 hr 10/27/20 10/27/20 04:30 04:30 WBC 8.4 RBC 3.50 L Hgb 10.8 L Hct 32.3 L MCV 92.1 MCH 30.9 MCHC 33.6 RDW 13.2 Plt Count 167 Neut % (Auto) 55.6 Lymph % (Auto) 33.0 [place] % (Auto) 7.1 Eos % (Auto) 3.1 Baso % (Auto) 1.2 Neut # (Auto) 4700 Lymph # (Auto) 2800 [place] # (Auto) 600 Eos # (Auto) 300 Baso # (Auto) 100 Sodium 138 Potassium 3.0 L Chloride 106 Carbon Dioxide 27 BUN 7 Creatinine 0.48 L Estimated GFR > 60.0 BUN/Creatinine Ratio 14.6 Glucose 104 Calcium 8.9 Magnesium 1.7 Total Bilirubin 1.9 H AST 23 ALT 21 Alkaline Phosphatase 53 Total Protein 6.3 Albumin 3.7 Globulin 2.6 Albumin/Globulin Ratio 1.4 Triglycerides 112 PFSH Medical History (Updated 10/26/20 @ 01:42 by SARAN Ledesma-) Acute psychosis 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 History of suicide attempt Non-insulin dependent type 2 diabetes mellitus Noncompliance with medications Obesity (BMI 30.0-34.9) Suicide attempt by multiple drug overdose Surgical History (Updated 10/26/20 @ 01:42 by SARAN Ledesma-COURTNEY) History of abdominal surgery History of hysterectomy Family History (Updated 10/26/20 @ 01:45 by SMILEY Ledesma) Other Unknown family medical history Social History household members: spouse Assessment & Plan Assessment & Plan narrative: Acute respiratory failure secondary to suicide attempt by drug overdose, in the setting of chronic undifferentiated schizophrenia and acute psychosis, acute on chronic, with left lower lobe aspiration pneumonia, acute, present on admission,-patient is stable -Patient is more awake and alert today -spontaneous weaning trial now -goal to extubate, remove OG tube, d/c lee today, d/c IVfluids and advance diet -Likely Aspiration Pneumonia -can switch to po antibiotics once extubated 2. Undifferentiated Schizophrenia -Once medically cleared will need psych evaluation for inpatient Psych transfer -Need to resume psych meds at some point 3. Non insulin-dependent type 2 diabetes, secondary to obesity as evidence by BMI of 31.2, acute on chronic, present on admission -admitting glucose 104, A1C ordered, AIC 5.5 -diabetes protocol, BS check q.6 hours while NPO, once eating changed to a.c. HS, low-dose sliding scale for coverage -holding patient's metformin, follow blood sugars in house -consideration will be given for dietary counseling. 4. DVT prophylaxis Likely will need PT/OT evaluation 5. Hypokalemia -will replace
--- NOTE | 2020-10-27 09:55 | RT ---
PT EXTUBATED AT 0927 PER VERBAL DOCTOR'S ORDER BY DR. SCHMITZ. PT PLACED ON 2 LPM N/C. O2 SAT NOTED AT 98% POST.
[2020-10-27] MEDS: POTASSIUM CHLORIDE IN WATER 10 MEQ/100 ML PIGGYBACK 100 MEQ IV ×6 (09:56→14:51)
[2020-10-27] MEDS: SODIUM CHLORIDE 0.9% FLUSH 10 ML IV ×2 (09:59→21:39)
--- NOTE | 2020-10-27 10:22 | PC.NURSE ---
Addendum entered by Rashawn Ford R.N. 10/27/20 13:48: Pt is following commands and answering questions with clear speech. Appears nervous. Declines to answer questions regarding SI and events leading up to hospitalization. She is able to tell me her name, that she is in the hospital, and the year. Tells me she lives alone in [place] and that her son lives nearby. Mejía was removed at 1220. Pt has been weaned to RA with SPO2 94%. Declined to get OOB to chair for lunch so gait not assessed at this time. Ate 75% of her lunch without nausea. Call light in reach. Bed alarm on. Sitter at bedside. Original Note: Sedation vacation and SBT this AM per Dr. Sahni verbal order. Pt was placed on SBT by RT and tolerated well. Verbal order obtained by RT from Dr. Sahni to extubate pt. Pt was extubated to 2L NC at 0927 RR even/nonlabored 16 SPO2 98%. Soft wrist restraints dc'd. She is drowsy but awakens to verbal and is calm/cooperative with care. She is asking for food. Oriented to place/time/situation and educated to plan of care. 1:1 sitter per policy Bed alarm on.
--- NOTE | 2020-10-27 14:43 | PC.NURSE ---
Dr Sahni aware of patients increased HR up to 125 at rest, Dr Sahni entering new order for IVF.
[2020-10-27] MEDS: KCL 40 MEQ IN NS 1,000 ML 100 MEQ IV (14:46)
[2020-10-27] MEDS: LACTATED RINGERS 1,000 ML 1000 ML IV (17:45)
--- NOTE | 2020-10-27 17:47 | CM.DANOTE ---
DCP/continued: Reviewed chart. Patient extubated today but still groggy and not alert and oriented x3. POWER TRANSFORMER INSPECTOR to evaluate for inpatient mental health placement once medically appropriate to do so. Dr. Sahni updated. May need psychiatry involvement if patient not voluntary. MARTHA Discharge Planning/Care Management CM Discharge Assessment Start: 10/26/20 16:07 Freq: Status: Active Protocol: Document 10/26/20 16:07 GRACIA (Rec: 10/26/20 16:15 GRACIA [id number]) Discharge Planning Assessment Assigned Film Developer HALEIGH Cunningham Contact Information Davie Lundberg (spouse) # [phone] Advance Directives? No Comment Prior living arrangments unclear at this time. Patient currently intubated after suspected intentional overdose . Household Members spouse Independent with ADL's Yes Is patient alert and oriented? No: Currently sedated on vent Comment Patient's d/c plan unknown at this time. POWER TRANSFORMER INSPECTOR and psychiatrist will need to access on whether or not patient appropriate for inpatient or outpatient MH follow up. Unclear if patient will be voluntary. Discharge Plan Psychiatric Facility Transportation Arrangement TBD Referrals Initiated Other Additional Comment Patient hopefully will be extubated tomorrow 10-27-20, if so POWER TRANSFORMER INSPECTOR will evaluate for d/c planning needs. Plan will be dependant on patient's willingness to get MH help for current and previous suicide attempts. Will discuss further with family/son/ once patient extubated. Comment Anticipate that patient will benefit from psychiatric and POWER TRANSFORMER INSPECTOR consults prior to d/c. Review Status In Process Next Review Type Continued Stay Review
[2020-10-27 18:21] LABS: Add Manual Diff / Slide Review NO; Basophils Absolute Auto 100 /uL (0-100); Basophils Percent Auto 0.8 % (0-2); Eosinophils Absolute Auto 300 /uL (0-450); Eosinophils Percent Auto 2.6 % (2-4); Hematocrit 33.4 % (36-46); Hemoglobin 11.3 g/dL (12.0-16.0); Lymphocytes Absolute Auto 2500 /uL (1100-4500); Lymphocytes Percent Auto 24.5 % (25-40); Mean Corpuscular HGB Conc 33.7 % (30-36); Mean Corpuscular Hemoglobin 31.2 PG (26-34); Mean Corpuscular Volume 92.5 fL (80-100); Monocytes Absolute Auto 800 /uL (0-900); Monocytes Percent Auto 7.8 % (3-14); Neutrophils Absolute Auto 6500 /uL (1500-7000); Neutrophils Percent Auto 64.3 % (50-75); Platelet Count 175 X10^3/uL (150-400); Red Blood Cell Count 3.61 X10^6/uL (4.0-5.2); White Blood Cell Count 10.1 X10^3/uL (4.5-11.0)
[2020-10-27 18:32] LABS: Alanine Aminotransferase 20 IU/L (<35); Albumin 3.5 g/dL (3.5-5.0); Albumin Globulin Ratio 1.3 (1.0-2.8); Alkaline Phosphatase 56 U/L (38-126); Aspartate Aminotransferase 21 IU/L (14-36); BUN Creatinine Ratio 19.1 (6-22); Blood Urea Nitrogen 9 mg/dL (7-17); Calcium 8.5 mg/dL (8.4-10.2); Carbon Dioxide 27 mmol/L (22-32); Chloride 114 mmol/L (98-107); Estimated Glomerular Filt Rate > 60.0 mL/min (>60); Globulin 2.8 g/dL (1.7-4.1); Glucose 118 mg/dL (80-110); HEMOLYSIS < 15 (0-50); Lipase 160 U/L (23-300); Sodium 143 mmol/L (137-145); Total Protein 6.3 g/dL (6.3-8.2)
[2020-10-27 18:33] LABS: Lactate (Lactic Acid) 1.4 mmol/L (0.7-2.1)
[2020-10-27] MEDS: ACETAMINOPHEN SUSP 650 MG/20.3 ML UDC PO (18:34)
[2020-10-27 18:58] LABS: Potassium 6.9 mmol/L (3.4-5.1)
[2020-10-27 19:43] LABS: BUN Creatinine Ratio 17.6 (6-22); Blood Urea Nitrogen 9 mg/dL (7-17); Calcium 9.6 mg/dL (8.4-10.2); Carbon Dioxide 27 mmol/L (22-32); Chloride 108 mmol/L (98-107); Estimated Glomerular Filt Rate > 60.0 mL/min (>60); Glucose 154 mg/dL (80-110); HEMOLYSIS < 15 (0-50); Potassium 4.1 mmol/L (3.4-5.1); Sodium 142 mmol/L (137-145)
[2020-10-27] MEDS: LACTATED RINGERS 500 ML 1000 ML IV (20:37)
[2020-10-27] MEDS: LORazepam 2 MG/ML INJ 0.5 MG IV (21:38)
[2020-10-27] MEDS: AMOXICILLIN/CLAV 875/125 MG 1 TAB PO (21:39)
[2020-10-27 21:46] LABS: Troponin I < 0.012 ng/mL (0.01-0.034)
[2020-10-27] MEDS: METOPROLOL TARTRATE 5 MG/5 ML INJ 2.5 MG IV (22:34)
--- NOTE | 2020-10-27 23:21 | PC.NURSE ---
At 1700 patients HR in 120s, 130s, sinus tach, LR 1000 cc bolus given, at 1830 given tylenol, no improvement in heart rate, hospitalist notified, ordered EKG and 500 cc bolus LR, no real improvement in heart rate, hospitalist notified, one time dose ativan ordered and given, heart rate still in 120s. Hospitalist ordered 2.5 IV metoprolol, given and HR improved to low 100s at 2245. Patient placed on 2L nasal cannula at 2245, hospitalist made aware.
[2020-10-28] VITALS (7 sets, daily range): BP systolic 102–129; BP diastolic 56–73; PULSE 85–106; RESP 13–22; TEMP 36.3–37.5; O2SAT 91–95
[2020-10-28] MEDS: KCL 40 MEQ IN NS 1,000 ML 100 MEQ IV (03:50)
[2020-10-28 04:54] LABS: BUN Creatinine Ratio 24.5 (6-22); Blood Urea Nitrogen 12 mg/dL (7-17); Calcium 8.8 mg/dL (8.4-10.2); Carbon Dioxide 28 mmol/L (22-32); Chloride 113 mmol/L (98-107); Cholesterol 129 mg/dL (140-199); Estimated Glomerular Filt Rate > 60.0 mL/min (>60); Glucose 96 mg/dL (80-110); HDL Cholesterol 24 mg/dL (40-60); HEMOLYSIS < 15 (0-50); LDL Cholesterol Calculated 85 mg/dL (<100); Magnesium 1.9 mg/dL (1.6-2.3); Potassium 4.2 mmol/L (3.4-5.1); Sodium 143 mmol/L (137-145); Triglycerides 102 mg/dL (35-150)
--- NOTE | 2020-10-28 08:14 | P.CONS_ITS ---
History of Present Illness Consult details Date Patient Seen: 10/28/20 Time Patient Seen: 08:14 Chief complaint: Overdose Requesting provider: Zulema Cortes Narrative: REFERRAL INFORMATION This is the latest of many psychiatric evaluations for this 60-year-old female referred by the inpatient care team for evaluation following a serious suicide attempt by overdose of her entire prescription supply.. RECORDS REVIEW The patient?s referral documents and medical records were reviewed as part of this evaluation. CHIEF COMPLAINT ?I just wanted to save my family.? HISTORY OF PRESENT ILLNESS The patient has a long history of mental illness dating back likely at least 10- 15 years. Most recently she has been followed by Dr. Karen Pagan at the [facility]. She apparently has a history of undifferentiated schizophrenia and chronic noncompliance with medications. She also has a history of non insulin-dependent type 2 diabetes. She was with her earlier in the day when she asked him to go walk the dog which she did. When he returns he found her obtunded, snoring, and with empty recently refilled prescription bottles nearby. Paramedics were called and the patient was transported. In route to [facility], the patient was diverted here to [facility] due to the need for respiratory support and was admitted here. With the patient's permission, I phoned her to obtain collateral infor mation as well as calling her psychiatrist Dr. Pagan at [facility]. The patient's apparently also suffers from mental illness and was not a good historian however he noted that the patient has been experiencing significant levels of depression and loneliness with multiple losses in her life recently meaning friends and relatives who have either gone away or in some cases . In addition, he noted that the patient often baby-sits her grandchildren and at times may be finding this overwhelming. Dr. Pagan noted a recent significant history that was concerning including multiple suicide attempts and chronic noncompliance with medication. She noted that the patient was admitted for a drug overdose in February of 2019. She also noted that the patient's last visit with her was on October 20 when she noted no significant issues other than the patient's usual chronic non adherence with medications and family reports of occasional verbal outbursts that may have possibly been related to responding to internal stimuli. The patient herself reported that she was scared of being around others and they initially discussed adding a long-acting injectable as a solution to the medication compliance issue. In addition, Dr. Pagan notes that she had a long conversation with the son as they were trying to work out the possibility of getting a DPOA to care for the patient. On 21 October 2020, the patient apparently overdosed taking 42 pills of unknown type but left a note stating that she felt the need to ?save my family. ? She was apparently seen at [facility] and released after a brief stay in the emergency department. On 24 October 2020, the patient had a visit with her therapist with [facility]. Once again no significant issues were noted and the patient's scores on screening questionnaires were low and did not indicate any impending issues. On 25 October 2020, as noted above, the patient made the serious suicide attempt in her current admission. In my conversations with the patient, she reports some paranoid delusions and reports that she is afraid to go out in public because, ?people say things to me and threat my family.? I took this to mean that the patient may be experiencing auditory hallucinations threatening her family. She noted that she also felt depressed, lonely, and bored with nothing to do recently. We noted that she had been in [facility] before for possibly hearing voices after she stop taking her medications and this is the 3rd suicide attempt in the last 2 months with previous to resulting in the patient being sent home after brief stabilization in the emergency department. PAST PSYCHIATRIC HISTORY - Diagnoses: Undifferentiated schizophrenia - Inpatient: Multiple prior episodes of inpatient hospitalization including a prior critical access hospital hospital stay. - Outpatient: Long history of outpatient treatment. - Suicide Attempts: Multiple prior suicide attempts. PREVIOUS PSYCHIATRIC MEDICATION TRIALS Long history of prior psychotropic medication treatment, but the patient is unable to list her previous medications. CURRENT PSYCHOTROPIC MEDICATIONS Fluoxetine Olanzapine FAMILY HISTORY - Maternal: History of psychotic symptoms and maternal grandmother - Paternal: None known - Siblings: None known SUBSTANCE USE HISTORY - Tobacco: Former smoker - Alcohol: Social drinker, declines any history of alcohol problems. - Drugs: The patient does not use drugs. DEVELOPMENTAL AND SOCIAL HISTORY - Family Constellation/Environment: The patient was born and raised in [place] but moved to [place] briefly when she was very young and then later moving in settling with her family in [place]. She is the 4th of 4 children from a broken home when her parents when she was about 1 years old. She reports having a good relationship with both parents. - Childhood Trauma: The patient denied any history of physical or sexual abuse, and has no history of witnessing violence as a child. - Developmental milestones: The patient reached normal developmental milestones. - Education: The patient denies any problem with school, but for some reason reports that she went to an alternative school when she was in the 7th grade that eventually dropped out of high school. 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 Throughout her working life she did this type of work. - Relationships: The patient is currently but both she and her ex- maintain a close relationship and live near each other or with their son and his family. - Current Living: The patient is currently domicile did in an apartment in [place]. - Support: Disability income? - Legal: No current legal difficulties. HISTORY - None. - Deployments: N/A - Combat Exposure: N/A - Blast Exposure: N/A SIGNIFICANT MEDICAL HISTORY PCP: [facility] a - Allergies: NKDA, allergy to bee stings - Medical Problems: Type 2 diabetes mellitus - Current Medications: See list above. - Herbals/Supplements: None. REVIEW OF SYSTEMS - Review of Systems is unremarkable currently. - Psych ROS per HPI. Meds Home Medications and Allergies Home Medications Medication Instructions Recorded Confirmed Type fluoxetine 20 mg capsule 40 mg PO DAILY 10/25/20 10/25/20 History metformin 850 mg tablet 850 mg PO DAILY 10/25/20 10/25/20 History olanzapine 20 mg tablet 20 mg PO BEDTIME 10/25/20 10/25/20 History Allergies Allergy/AdvReac Type Severity Reaction Status Date / Time venom-honey bee Allergy Unknown Verified 10/25/20 20:53 Exam Vital Signs (past 8 hours): - 10/28/20 04:12 10/28/20 07:29 Temperature 97.3 F L 97.5 F L Pulse Rate 85 91 H Respiratory Rate 13 14 Blood Pressure 102/56 L 129/58 L Pulse Oximetry 95 95 Fraction of Inspired Oxygen 25 Oxygen Delivery Method Room Air Oxygen Flow Rate 2 Narrative Exam Narrative: MENTAL STATUS EXAM * Appearance: Moderately overweight female seen in her hospital room lying in her hospital bed and eating breakfast. * Grooming: Dressed in hospital pajamas and appears adequately groomed * Behavior: Calm and cooperative with the evaluation, however, provided minimal information and answers to questions. * Gait: Not tested * Speech: Normal rate, volume, and lucy, but provided paucity of content. * Mood: ?I do not know? * Affect: Neutral to mildly dysphoric. Constricted with limited range. * Thought Process: Linear, logical, and goal directed for the most part, but generally vague when pressed on specifics. * Thought Content: Denies current suicidal or homicidal ideation, intent, or plan. Denies current perceptual disturbance such as hallucinations, illusions, delusions, or ideas of reference. However, given patient's recent history I do not believe this to be reliable. * Attention: Attentive to interview * Orientation: Oriented approximately to person, place, time, and circumstance. * Memory: Intact for interview, not formally tested * Insight: Poor * Judgment: Poor Objective Labs Result Diagrams: 10/27/20 18:10 10/28/20 04:20 Labs: Laboratory Results - last 24 hr 10/27/20 10/27/20 10/27/20 04:30 18:10 18:10 WBC 8.4 10.1 RBC 3.61 L Hgb 11.3 L Hct 33.4 L MCV 92.1 92.5 MCH 31.2 MCHC 33.6 33.7 RDW 13.0 Plt Count 175 Neut % (Auto) 55.6 64.3 Lymph % (Auto) 24.5 L [place] % (Auto) 7.8 Eos % (Auto) 2.6 Baso % (Auto) 0.8 Neut # (Auto) 6500 Lymph # (Auto) 2500 [place] # (Auto) 800 Eos # (Auto) 300 Baso # (Auto) 100 Sodium 143 Potassium 6.9 H* D Chloride 114 H Carbon Dioxide 27 BUN 9 Creatinine 0.47 L Estimated GFR > 60.0 BUN/Creatinine Ratio 19.1 Glucose 118 H Lactate Calcium 8.5 Magnesium Total Bilirubin 1.0 AST 21 ALT 20 Alkaline Phosphatase 56 Troponin I Total Protein 6.3 Albumin 3.5 Globulin 2.8 Albumin/Globulin Ratio 1.3 Triglycerides Cholesterol LDL Cholesterol, Calc HDL Cholesterol Lipase 160 10/27/20 10/27/20 10/27/20 18:10 19:13 21:17 WBC RBC Hgb Hct MCV MCH MCHC RDW Plt Count Neut % (Auto) Lymph % (Auto) [place] % (Auto) Eos % (Auto) Baso % (Auto) Neut # (Auto) Lymph # (Auto) [place] # (Auto) Eos # (Auto) Baso # (Auto) Sodium 142 Potassium 4.1 D Chloride 108 H Carbon Dioxide 27 BUN 9 Creatinine 0.51 L Estimated GFR > 60.0 BUN/Creatinine Ratio 17.6 Glucose 154 H Lactate 1.4 Calcium 9.6 Magnesium Total Bilirubin AST ALT Alkaline Phosphatase Troponin I < 0.012 Total Protein Albumin Globulin Albumin/Globulin Ratio Triglycerides Cholesterol LDL Cholesterol, Calc HDL Cholesterol Lipase 10/28/20 04:20 WBC RBC Hgb Hct MCV MCH MCHC RDW Plt Count Neut % (Auto) Lymph % (Auto) [place] % (Auto) Eos % (Auto) Baso % (Auto) Neut # (Auto) Lymph # (Auto) [place] # (Auto) Eos # (Auto) Baso # (Auto) Sodium 143 Potassium 4.2 Chloride 113 H Carbon Dioxide 28 BUN 12 Creatinine 0.49 L Estimated GFR > 60.0 BUN/Creatinine Ratio 24.5 H Glucose 96 Lactate Calcium 8.8 Magnesium 1.9 Total Bilirubin AST ALT Alkaline Phosphatase Troponin I Total Protein Albumin Globulin Albumin/Globulin Ratio Triglycerides 102 Cholesterol 129 L LDL Cholesterol, Calc 85 HDL Cholesterol 24 L Lipase Assessment & Plan Assessment and plan (1) 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: Status: Acute (2) Suicide attempt by multiple drug overdose: Status: Acute (3) Noncompliance with medications: Status: Acute Assessment & Plan narrative: ASSESSMENT/MEDICAL DECISION MAKING ADA ROSAS is a 60-year-old female with a long history of undifferentiated schizophrenia and poor medication compliance. She is an extremely poor and unreliable historian who provides fairly limited information and is extremely vague and evasive when attempts are made to expand her answers to questions. Collateral information obtained from the patient's () and her psychiatrist at [facility] (Dr. Karen Pagan) indicate a significant history of 3 overdose suicide attempts in the last month and this is the 4th this calendar year. The patient is chronically noncompliant with medication, clearly has poorly controlled symptoms, and requires inpatient hospitalization for stabilization and likely initiation of a long-acting injectable antipsychotic medication. In addition, significant depressive symptoms also need to be addressed. RECOMMENDATIONS 1. Initiate an involuntary hold evaluation for inpatient admission with the DCR due to grave disability and imminent risk of self-harm given recent history of 3 suicide attempts in the last month with this most recent 1 being potentially fatal. 2. Hold both fluoxetine and olanzapine for the time being. Given fluoxetine is a long half-life (approximately 7 days) would recommend several days before reintroducing this medication. 3. Olanzapine can be reintroduced 24 hours after residual overdose symptoms have resolved. 4. Will continue to follow with you while patient is in the hospital. Time Spent With Patient Time with patient: Greater than 35 minutes
[2020-10-28] MEDS: AMOXICILLIN/CLAV 875/125 MG 1 TAB PO ×2 (08:55→21:57)
[2020-10-28] MEDS: HEPARIN 5,000 UNIT/ML VIAL 5000 UNIT SUBCUT ×2 (08:55→21:58)
[2020-10-28] MEDS: SODIUM CHLORIDE 0.9% FLUSH 10 ML IV (08:57)
--- NOTE | 2020-10-28 14:43 | CM.SWNOTE ---
PSYCHOSOCIAL REHABILITATION COUNSELOR - Dial Equipment Engineer Assessment PSYCHOSOCIAL REHABILITATION COUNSELOR - Dial Equipment Engineer Assessment Start: 10/28/20 14:24 Time Spent with Patient Start date 10/28/20 Visit Start Time 14:05 End date 10/28/20 Visit End Time 14:20 Total time Care Management spent on 15 patient visit-in minutes Mental Health Screening Include Onset, Duration, Intensity Presenting Problem Patient presents to the ICU via transfer from [facility] after recent suicide attempt on 10/25/20 Precipitating Event(s) Per psychiatry consult this is patient's third suicide attempt in 2 months. 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 Patient endorses she does not recall previous recent suicide attempts Patient Strengths Patient has psychiatrist and counselor Current Behavioral Health Provider(s) Psychiatrist Dr. Karen Pagan at [facility], Provider, Ph. # [facility] Ph.# Patient endorses counselor but does not disclose MH provider 's name Psych. Hx Mental Health and Chemical Patient has hx of Dependency undifferentiated schizophrenia , noncompliance with medications and hx of SA. Patient denies ETOH and substance use Family Hx of Behavioral Abuse None reported Psychiatric Hospitalizations (date(s)/ Patient endorses hx of location) hospitalization 7 years ago. Patient has been inpatient several times and endorses she does not want inpatient hospitalization Psychosocial information & Support Patient is 60 y/o female who Systems resides by herself in an apartment in [place], [place]. Patient endorses her supports are her son, and endorses providers. School/Work Unemployed Legal Concerns Legal Matters - Outstanding Issues None reported Mental Status Orientation (Person/Place/Time) A/Ox4 Stated Mood depressed and sad Affect (Congruent with Mood?) Flat, congruent with mood, full range Thought Content - Specify/Describe Patient endorses that she is Obsessions, Delusions, Hallucinations nervous to be around other people, patient denies hallucinations. Thought Processes (Ertpyls-Odifpkiu-Vtdy circumstantial Ghsnjipv-Mcovmsvs-Yyuatcmyrd- Xombkcilnwubcm-Cvaolzv-Phrjksbbhlaj- Thought Blocking) Speech (Oxfbzr-Xwmc-Ffbrgrl-Rapid-Soft- slow/normal Loud-Pressured) Motor (Xurdzw-Qqthruayv-Ahjc-Other) normal, not formally assessed Insight (Rlqc-Ngfu-Tokx/Limited) Poor/limited Judgement (Eved-Lhrm-Zgbn/Limited) Poor/limited Impulse Control (Adequate-Impaired) adequate Memory (Qpunnraje-Ycdmmq-Zhxdyd, impaired, not formally Impaired-Intact) assessed. Patient does not recall previous SAs or hospitalizations Concentration (Intact-Impaired) intact Attention (Intact-Impaired) intact Behavior (Appropriate-Inappropriate) appropriate Risk Assessment Suicidal Ideation (Plan) Yes Homicidal Ideation (Plan) No Comment Patient denies HI and self harm. Patient endorses SI and SA. Patient endorses plan to take too many pills to kill self and no other plans. Patient has attempted suicide 3 times in the last 2 months. Intervention Intervention PSYCHOSOCIAL REHABILITATION COUNSELOR enters room to meet with patient in ICU room. Patient endorses that she took too many pills with intent to kill self because she wants to save my whole family. 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 Patient endorses that she wants to go home and utilize outpatient services and go home. Patient continues to endorse that she does not want to go to inpatient hospital. PSYCHOSOCIAL REHABILITATION COUNSELOR discusses that it is recommended that patient be evaluated and assessed by DCR to ensure patient safety due to recent suicide attempts . Patient endorses that her son or can live with her to ensure her safety. PSYCHOSOCIAL REHABILITATION COUNSELOR states that patient will meet with DCR to identify safe plan for patient. It is the opinion of this PSYCHOSOCIAL REHABILITATION COUNSELOR that patient is not safe to d/ c to home and is in need of Behavioral Health inpatient hospitalization. ICU hospitalist signs [facility] attestation form as patient is medically clear. PSYCHOSOCIAL REHABILITATION COUNSELOR faxes [facility] and calls [facility] to dispatch DRC at [phone]. Plan RA Plan DCR to assess POC for patient to determine transfer to inpatient hospital bed HALEIGH Murray
--- NOTE | 2020-10-28 15:13 | PC.NURSE ---
1510-Introduced myself to pt. Asked if she needed anything at the moment. Pt stated No and that she is waiting for the DCMP and is anxious to get out of here.
--- NOTE | 2020-10-28 17:22 | PC.NURSE ---
1720-Pt ate a full meal and as I was taking her tray away, she said less yuval. I asked her what that means and she said Oh that's my warning. I asked her what she meant by that to which she replied Oh nevermind. Pt has said that phrase less yuval 2 other times while I have been watching her. Mentioned to Carson about it, Will continue to monitor pt.
--- NOTE | 2020-10-28 17:58 | CM.SWNOTE ---
Addendum entered by Susie Mckinnon 10/28/20 19:01: OUTDOOR ADVERTISING LEASING AGENT Note MEHRDAD Suarez finished assessment with patient at aprox 1815. Per SARAH Alberto, DCR is going to detain patient and seek for ANA M inpatient bed for patient. OUTDOOR ADVERTISING LEASING AGENT reviews the above with SELMA Savage and patient. Both indicate understanding. Patient asks questions regarding where she will go, how long she will stay and concerns about her insurance. OUTDOOR ADVERTISING LEASING AGENT reviews that DCR is going to find placement, and at this time it is unknown where patient will go. Plan: DCR to seek ANA M inpatient bed for patient. HALEIGH Murray Original Note: OUTDOOR ADVERTISING LEASING AGENT Note MEHRDAD Suarez informs OUTDOOR ADVERTISING LEASING AGENT that patient's DPOA is son Anurag (Ph. # [phone]). [facility] does not have DPOA records at this time, Anurag would like regular contact regarding patient's POC. Erick endorses that Anurag is in support of patient transferring to inpatient bed and that patient often tries to get out of inpatient treatment. MEHRDAD Suarez meets with patient via Zoom at 1750. Patient reviews the above with SELMA Savage. Janette endorses that patient has been requesting to go home all day. Plan: MEHRDAD Suarez to evaluate patient and determine appropriate POC. HALEIGH Murray
--- NOTE | 2020-10-28 18:19 | PC.NURSE ---
1745-Pt talking with RAMONEP at the moment.
--- NOTE | 2020-10-28 19:01 | PM.PN.1 ---
Subjective Subjective Interval history: the patient is a 60-year-old female who was admitted to the hospital for an intentional overdose of Prozac and Zyprexa. Patient has a history of undifferentiated schizophrenia. She was successfully extubated yesterday. Today the patient reports she does not want to go to a psych facility. She has been sleepy most of the day but is arousable and alert today Exam Vital Signs (past 8 hours): - 10/28/20 11:20 10/28/20 16:00 Temperature 98.6 F 99.3 F Pulse Rate 106 H 90 Respiratory Rate 22 16 Blood Pressure 114/59 L 127/63 Pulse Oximetry 94 Fraction of Inspired Oxygen 25 Oxygen Delivery Method Nasal Cannula Oxygen Flow Rate 2 Narrative Exam Narrative: Disheveled ill-appearing female lying in bed Resp Other: lungs: Clear to auscultation Cardio Other: cardiac exam: Regular rate and rhythm normal S1-S2 GI Other: abdomen: Soft nontender nondistended Extrem Other: extremities: No edema Objective Labs Result Diagrams: 10/27/20 18:10 10/28/20 04:20 Labs: Laboratory Results - last 24 hr 10/27/20 10/27/20 10/27/20 04:30 04:30 19:13 WBC 8.4 RBC 3.50 L Hgb 10.8 L Hct 32.3 L MCV 92.1 MCH 30.9 MCHC 33.6 RDW 13.2 Plt Count 167 Neut % (Auto) 55.6 Lymph % (Auto) 33.0 [place] % (Auto) 7.1 Eos % (Auto) 3.1 Baso % (Auto) 1.2 Neut # (Auto) 4700 Lymph # (Auto) 2800 [place] # (Auto) 600 Eos # (Auto) 300 Baso # (Auto) 100 Sodium 138 142 Potassium 3.0 L 4.1 D Chloride 106 108 H Carbon Dioxide 27 27 BUN 7 9 Creatinine 0.48 L 0.51 L Estimated GFR > 60.0 > 60.0 BUN/Creatinine Ratio 14.6 17.6 Glucose 104 154 H Calcium 8.9 9.6 Magnesium 1.7 Total Bilirubin 1.9 H AST 23 ALT 21 Alkaline Phosphatase 53 Troponin I Total Protein 6.3 Albumin 3.7 Globulin 2.6 Albumin/Globulin Ratio 1.4 Triglycerides 112 Cholesterol LDL Cholesterol, Calc HDL Cholesterol 08/30/21 08/31/21 21:17 04:20 WBC RBC Hgb Hct MCV MCH MCHC RDW Plt Count Neut % (Auto) Lymph % (Auto) [place] % (Auto) Eos % (Auto) Baso % (Auto) Neut # (Auto) Lymph # (Auto) [place] # (Auto) Eos # (Auto) Baso # (Auto) Sodium 143 Potassium 4.2 Chloride 113 H Carbon Dioxide 28 BUN 12 Creatinine 0.49 L Estimated GFR > 60.0 BUN/Creatinine Ratio 24.5 H Glucose 96 Calcium 8.8 Magnesium 1.9 Total Bilirubin AST ALT Alkaline Phosphatase Troponin I < 0.012 Total Protein Albumin Globulin Albumin/Globulin Ratio Triglycerides 102 Cholesterol 129 L LDL Cholesterol, Calc 85 HDL Cholesterol 24 L [facility] Medical History Acute psychosis 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 History of suicide attempt Non-insulin dependent type 2 diabetes mellitus Noncompliance with medications Obesity (BMI 30.0-34.9) Suicide attempt by multiple drug overdose Surgical History History of abdominal surgery History of hysterectomy Family History Other Unknown family medical history Social History household members: spouse Assessment & Plan Assessment & Plan narrative: 1. 60-year-old female admitted to the hospital with an intentional suicide overdose. - Patient with a long history of under her and treated schizophrenia with multiple suicide attempts - patient continues to be depressed and is felt to be high risk for repeat suicide - appreciate Dr. lao evaluation based on his recommendation once the patient is cleared she will be evaluated for involuntary commitment to an inpatient psychiatric unit - patient's psychiatric medications have been held 2. Respiratory failure, secondary to left lower lobe aspiration pneumonia -suspect the patient aspirated at the time of her overdose -continue Augmentin for coverage of aspiration -oxygen as needed 3. Type 2 diabetes -can resume metformin 850 daily 4. Await DCS evaluation for involuntary commitment 5. Tachycardia -resolved suspect related to her polysubstance overdose
--- NOTE | 2020-10-28 22:24 | P.DS_ITS ---
History of Present Illness History of Present Illness Date Patient Seen: 10/28/20 Time Patient Seen: 22:24 Chief complaint: Suicide attempt, acute respiratory failure, PNA Narrative: Chief complaint: Suicide attempt, acute respiratory failure with left lower lobe pneumonia From H and P prepared by Hamida Cisneros: Patient is a 60-year-old female Rashawn Lundberg with a history of chronic undifferentiated schizophrenia, acute psychosis, noncompliance with medications and non insulin-dependent type 2 diabetes who presented to the ED department at [facility]. Patient seen for drug overdose/suicide attempt by Dr. Flower at [facility] stated the patient's spouse provided history. The stated he was with his this morning and she told him to go walk the dogs when he returned he found her obtunded and snoring. The EMS found at the naya ent's bedside pill bottles Prozac 40 mg #30 and Zyprexa 20 mg #60, both had been emptied, both prescriptions had been filled within the last 48 hours. The medics found the patient was responding to painful stimuli with moaning but was not protecting her airway and was intubated in route. Patient was given Etomidate, succinylcholine, fentanyl and Versed EN route to [facility] ED at approximately 1430. Dr. Flower consulted poison Control at 1446 p.m. who recommended supportive care, then consulted Dr. Cortes [facility] hospitalist who accepted, for acute care transfer to facility. Patient's vitals/labs at [facility] were originally BP 157/88, HR 120, temp 36?, RR 20, O2 saturation 100% on intubation. Patient had elevated white count 10.3, neutrophils 8.2, hypokalemia potassium 3.1, BUN 7, glucose 189, calcium 7.6, albumin 3.2, magnesium 1.5, acetaminophen< 2.0, TSH 0.128, rapid urine drug screen was positive for benzodiazepines. ABGs demonstrated pH 7.37, pCO2 47, PO2 169, HC03 27.8 patient's urine was negative for infection, respiratory panel was negative, salicylate WNL, troponin WNL <0.017, BNP WNL 21, lactic acid WNL 1.9. EKG demonstrated sinus tachycardia at a rate of 128 probable LAE. Patient's chest x-ray confirmed endotracheal tube placement 2.8 cm above ginette, and left lobe infiltrate suspicious for pneumonia. Patient receive 2 g magnesium rider, and 10 mEq potassium rhyder replacement. Patient arrived at [facility] at approximately 9:00 p.m. sedated and intubated. Patient was a ICU bed-side, admit greater than 60 minutes. Building Principal notified in room upon admit and participated in intial admit. Initial vitals temp 97.2?, BP 200/97, HR 125, RR 14, O2 saturation 97%, patient was on a propofol drip 15 mcg/kg/min, vent settings: PRVC 40%, TV 450, rate 20, peep 5. Patient was agitated, began bucking the vent, the radial drill operator requested that the propofol be increased to 40-50mg. At approximately 9:30 p.m. the patient became severely hypotensive, with maps as low as 40, likely due to the increased propofol dosage. The ICU nurses pushed the button for the tele- radial drill operator, and did not get any response. I ordered titration down the propofol, Levophed, and a bolus of fluid. Changed propofol to Precedex, levophed was held and patient stabilized. Patient's WBC 13.1, with a left shift neutrophils 9694, chemistries sodium 147, chloride 109, BUN 6, creatinine 0.43, lactate 2.2, triglycerides, salicylate, acetaminophen, and procalcitonin all WNL. Patient's ABGs pH 7.54, pCO2 35.2, HC03 30, base excess 7.0, FiO2 40. Patient continues on the ventilator : PRVC 40%, TV 450, rate 16, peep of 5, titrating Precedex drip 0.2 mcg/kg/HR and fentanyl drip 1 mg/kg/HR. Patient is now resting comfortably temp 97.3, BP 126/69, HR 93, R 16, O2 saturation 100%, FiO2 40. NG tube in place with intermittent suction secretions are clear at this time, Mejía in place, draining, with large amount yellow urine output. Patient's chest x-ray demonstrated left basilar infiltrate consistent with pneumonia. Patient on LR at 100 cc and Zosyn initiated. Patient admitted for drug overdose/suicide attempt, in the setting of acute psychosis and chronic undifferentiated schizophrenia. Discharge Providers Provider Date of admission: 10/25/20 18:20 Discharge Date: 10/28/20 Primary care physician: Mathew Meyer MD Consults: 10/25/20 19:37 Consult to Dietitian, Adult Routine Comment: Reason For Exam: Patient on Ventilator and NPO 10/26/20 02:08 Consult to Physician Routine Comment: When pt is awake and extubated Consulting Provider: Caden Carcamo Reason for consultation: Drug overdose/suicide attempt/schizophrenia- Has provider been notified: No 10/26/20 02:12 Consult to Respiratory Therapy Evaluate & Treat Comment: On-going PRN/ventilator Physician Instructions: Evaluate and treat 10/26/20 02:45 Consult After Hours PICC Line RN Routine Comment: Discharge provider: JENNIFER Ansari Summary Hospital Course Discharge Diagnosis: Undifferentiated schizophrenia Suicide attempt Hospital Course: Rashawn Lundberg was admitted to [facility] due to an overdose of Zyprexa and Prozac. She was intubated due to acute respiratory failure and metabolic encephalopathy. The patient was comanaged with the eICU and Psychiatry. Patient's left lower lobe pneumonia was treated with IV Zosyn. The patient was extubated on October 27. Consultation with Psychiatry indicated multiple prior mental health crisis admissions, prior suicide attempts, and seemingly intractable symptomatic control of her mental health issues as reasons to order an involuntary commitment for this patient. The mental health facility in [place], was able to take her and this occurred at 2230 in the evening. She was given a single dose of oral Ativan for the ambulance ride [place], [place]. Status at Discharge Cognitive/behavioral status at discharge: at baseline, oriented Functional status at discharge: independent ambulation Overall status at discharge: patient is not back to baseline Exam Vital Signs (past 8 hours): - 10/28/20 16:00 10/28/20 19:59 Temperature 99.3 F 99.5 F Pulse Rate 90 103 H Respiratory Rate 16 16 Blood Pressure 127/63 117/73 Pulse Oximetry 94 92 Fraction of Inspired Oxygen 25 Oxygen Delivery Method Nasal Cannula Oxygen Flow Rate 2 Narrative Exam Narrative: Patient's temp is 99.2?, blood pressure 116/57, heart rate 97, respiratory rate of 18, oxygen saturation of 91% on room air, she weighs 87 kg with a BMI of 31.1. Patient is stable for transport to facility. Objective Labs Result Diagrams: 10/27/20 18:10 10/28/20 04:20 Labs: Laboratory Results - last 24 hr 10/27/20 10/27/20 10/28/20 04:30 04:30 04:20 WBC 8.4 RBC 3.50 L Hgb 10.8 L Hct 32.3 L MCV 92.1 MCH 30.9 MCHC 33.6 RDW 13.2 Plt Count 167 Neut % (Auto) 55.6 Lymph % (Auto) 33.0 [place] % (Auto) 7.1 Eos % (Auto) 3.1 Baso % (Auto) 1.2 Neut # (Auto) 4700 Lymph # (Auto) 2800 [place] # (Auto) 600 Eos # (Auto) 300 Baso # (Auto) 100 Sodium 138 143 Potassium 3.0 L 4.2 Chloride 106 113 H Carbon Dioxide 27 28 BUN 7 12 Creatinine 0.48 L 0.49 L Estimated GFR > 60.0 > 60.0 BUN/Creatinine Ratio 14.6 24.5 H Glucose 104 96 Calcium 8.9 8.8 Magnesium 1.7 1.9 Total Bilirubin 1.9 H AST 23 ALT 21 Alkaline Phosphatase 53 Total Protein 6.3 Albumin 3.7 Globulin 2.6 Albumin/Globulin Ratio 1.4 Triglycerides 112 102 Cholesterol 129 L LDL Cholesterol, Calc 85 HDL Cholesterol 24 L [facility] Medical History Acute psychosis 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 History of suicide attempt Non-insulin dependent type 2 diabetes mellitus Noncompliance with medications Obesity (BMI 30.0-34.9) Suicide attempt by multiple drug overdose Surgical History History of abdominal surgery History of hysterectomy Family History Other Unknown family medical history Social History household members: spouse Discharge Assessment & Plan Assessment and Plan Assessment: Undifferentiated schizophrenia with multiple suicide attempts Plan of Treatment: Transfer to [facility] in [place] Discharge Plan Discharge Plan Patient Disposition: Xfer Psychiatric Hosp Other facility: [facility] Discharge Health Status Precautions: [place] Diet/Activity/Treatments Diet: Diet as Tolerated Liquid consistency: Normal/Thin Food texture: Regular Discharge Data Primary Care Provider: Mathew Meyer VTE Deep Vein Thrombosis/Pulmonary Embolism Present on Admission: No MIPS - Admit I confirm the patient?s Advance Care Plan is present, Code status is documented, Surrogate decision maker is in patient?s record [If Yes, STOP here]: Yes MIPS - DC The patient has current or prior documentation of left ventricular ejection f raction (LVEF) less than 40%, or moderate or severely depressed left ventricular systolic function.: No
[2020-10-28] MEDS: LORazepam 1 MG TABLET PO (22:26)
--- NOTE | 2020-10-28 22:28 | PC.NURSE ---
2224-As I was walking out the door after offering pt a glass of water, she said Tabrea. I asked her to repeat the word again and I asked if that was medication she takes. She said no, its a girls name, its another one of her warnings. When I asked her to clarify she said, Oh nevermind. Transport will be coming to pick pt up to bring her to [facility] around 2244. Will continue to monitor pt until transport comes to pick her up.
--- NOTE | 2020-10-28 22:44 | PC.NURSE ---
Evening shift note. I assumed responsibility for this patient at 1900. pt AO and lethargic. Laying in bed mostly but IND in room. Sitter at doorway assisting with needs. Reporting stress, denying pain. Erick from [facility] called in with pt to announce transfer to [facility] in [place] and that she was going involuntarily. pt agreed without many questions. Ambulance transport scheduled for later this shift. A copy of paperwork was provided to pt and Erick witnessed. A copy will also be provided to transfer. I spoke to a nurse from the facility and provided a report. CBG's 99, 119. PO ABX and PO 1mg Ativan administered at 2235 for transfer prep and stress management. No IV access. Tolerating ADA diet and eating snacks. Intermittent cough associated with intubation.
--- NOTE | 2020-10-29 00:26 | PC.NURSE ---
The [place] transport can at about 0025am for Pt. I made sure pt. had everything she had in room that was belonged to her Pt is calm and quiet at this time while waiting for all paper work was been check and in order
--- NOTE | 2020-10-29 02:08 | PC.NURSE ---
Patient transferred to [facility] via BLS transport, [facility] at 0040, A/Ox4, little forgetful of recent events, calm and cooperative. Tums and Tylenol given. VSS. Voided. Belongings sent with her.
== END 2020-10-29 00:40 | DRG 917 ==
PROVIDERS: Internal Medicine; Nurse Practitioner Family; Admitting Provider Family Medicine; PCP Internal Medicine; Referring Provider Family Medicine; Visit Provider Family Medicine
DX: T43.222A Poisoning by selective serotonin reuptake inhibitors, intentional self-harm, initial encounter (principal); J96.00 Acute respiratory failure, unspecified whether with hypoxia or hypercapnia; J69.0 Pneumonitis due to inhalation of food and vomit; T43.592A Poisoning by other antipsychotics and neuroleptics, intentional self-harm, initial encounter; F20.9 Schizophrenia, unspecified; I95.2 Hypotension due to drugs; T41.295A Adverse effect of other general anesthetics, initial encounter; E11.9 Type 2 diabetes mellitus without complications; E66.9 Obesity, unspecified; Z68.31 Body mass index [BMI] 31.0-31.9, adult; Z79.84 Long term (current) use of oral hypoglycemic drugs; E87.6 Hypokalemia; Z91.14 Patient's other noncompliance with medication regimen; Z87.891 Personal history of nicotine dependence
CPT/HCPCS: 36415; 36600; 71045; 80048; 80053; 80061; 80329; 82140; 82805; 82962; 83036; 83605; 83690; 83735; 84145; 84478; 84484; 85007; 85025; 87040; 87070; 87205; 87797; 90792; 93005; 93010; 94002; 94003; 94010; 94799; G0480; J1642; J1644; J1815; J2060; J2543; J2704; J3010; J3480; J3490; P9041